=== PATIENT | male | born 1970 | race Caucasian/White ===

== ENCOUNTER → 2016-08-10 | Outpatient (CLI) | payer BC ==
--- NOTE | 2016-08-10 16:00 | US ---
EXAMINATION TYPE: US pelvic limited DATE OF EXAM: 08/10/2016 3:13 PM COMPARISON: CLINICAL HISTORY: R10.2 Pelvic and perineal pain. Lower abdominal pain= right, left and midline. No injury. No palpable. Pelvic scanned. Bladder appears distended and wnl. Prostate seen transabdominally = 3.1 x 3.8 x 2.5 cm with possible cystic lesion seen = 1.4 x 1.4 x 1.2 cm. Peristalsing bowel seen in bilateral adnex a- no masses or fluid collections identified. IMPRESSION: 1. Limited pelvic ultrasound. 2. Prostate with a hypoechoic area measuring 1.4 x 1.4 x 1.2 cm may be a cyst. Recommend transrectal sonography for closer evaluation.
== END | disposition home or self-care (01) ==
LOC: RADUSWWP 14:44
PROVIDERS: ATTEND Family Medicine
DX: R93.5 Abnormal findings on diagnostic imaging of other abdominal regions, including retroperitoneum (principal)
CPT/HCPCS: 76857

== ENCOUNTER 2017-06-04 08:32 | Emergency (ER) | payer OTHER, BC ==
[2017-06-04] MEDS ORDERED: MORPHINE SULFATE/PF 10MG/10ML VL IVP STA (09:03)
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
[2017-06-04] MEDS ORDERED: MORPHINE SULFATE 4 MG/ML SYRINGE IV STA (09:46)
[2017-06-04] MEDS ORDERED: MORPHINE SULFATE/PF 10MG/10ML VL IV STA (09:52)
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
[2017-06-04] MEDS ORDERED: LORazepam 2 MG/ML INJ IV STA (10:48)
[2017-06-04] MEDS ORDERED: KETOROLAC 30 MG/ML 1 ML VIAL IVP STA (10:49)
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
[2017-06-04 12:57] VITALS: BP 136/99; PULSE 84; RESP 17; TEMP 97.4
== END 2017-06-04 13:21 | disposition home or self-care (01) ==
LOC: EC 08:32
DX: M54.2 Cervicalgia (principal); M54.5 Low back pain; M25.552 Pain in left hip; M79.601 Pain in right arm; M79.602 Pain in left arm; K21.9 Gastro-esophageal reflux disease without esophagitis; F17.200 Nicotine dependence, unspecified, uncomplicated; Z98.1 Arthrodesis status; Z79.899 Other long term (current) drug therapy; V43.52XA Car driver injured in collision with other type car in traffic accident, initial encounter
CPT/HCPCS: 72072; 72100; 73502; 72125; 70450; 99285; 96374; 96375 ×2; 96376; J2060; J1885; J2270

== ENCOUNTER → 2017-12-28 | Outpatient (CLI) | payer OTHER, BC ==
--- NOTE | 2017-12-28 07:52 | MR ---
EXAMINATION TYPE: MR cervical spine wo/w con DATE OF EXAM: 12/28/2017 COMPARISON: CT cervical spine 06/04/2017 HISTORY: Neck pain TECHNIQUE: Multiplanar, multisequence images of the cervical spine were acquired utilizing 7.5 mL intravenous Ga davist gadolinium contrast. Diffusion weighted imaging was performed. C2-C3: No evidence for degenerative disc disease. No disc bulge/herniation or protrusion. No Canal stenosis. Foramina are patent bilaterally. C3-C4: Spondylosis is present, there is some associated loss of disc height and signal. Broad-based p osterior disc bulge causes only minimal anterior mass effect on the thecal sac. No significant forami nal encroachment. C4-C5: Intervertebral spacing block is present. No disc herniation or foraminal encroachment. C5-C6: Uncovertebral joint hypertrophy and facet arthropathy result in some left greater than right f oraminal encroachment. No disc herniation. Intervertebral spacing blocks present. C6-C7: There is a posterior broad-based disc bulge present causing mild anterior mass effect on the t hecal sac, lateral disc herniation is noted approaching on the neural foramina bilaterally. C7-T1: No evidence for degenerative disc disease. No disc bulge/herniation or protrusion. No Canal stenosis. Foramina are patent bilaterally. Cervical segments are intact. There is normal alignment. Cervical spinal cord is of normal signal. Craniovertebral junction relationships are within normal limits. Anterior cervical fusion and disce ctomy change at C4-C6, susceptibility artifact due to patient's hardware is noted. There is no eviden t spinal stenosis. No abnormal enhancement following contrast administration. Possible polyp noted in the maxillary sinus on the left versus mucus retention cyst. IMPRESSION: Lateral disc herniations at C6-7, correlate for C7 radiculopathies. Additional findings above.
== END | disposition home or self-care (01) ==
LOC: RADMRIMAIN 06:29
PROVIDERS: ATTEND Orthopaedic Surgery Orthopaedic Surgery of the Spine
DX: M50.220 Other cervical disc displacement, mid-cervical region, unspecified level (principal); M47.812 Spondylosis without myelopathy or radiculopathy, cervical region; M46.92 Unspecified inflammatory spondylopathy, cervical region
CPT/HCPCS: 72156; A9581

== ENCOUNTER → 2018-02-04 | Outpatient (CLI) | payer BC, OTHER ==
[2018-02-04 13:03] LABS: Basophils % (A) 1 %; Eosinophils # (A) 0.2 k/uL (0-0.7); Eosinophils % (A) 3 %; HCT 45.3 % (39.0-53.0); HGB 15.4 gm/dL (13.0-17.5); Lymphocytes # (A) 2.1 k/uL (1.0-4.8); Lymphocytes % (A) 35 %; MCH 29.4 pg (25.0-35.0); MCHC 34.1 g/dL (31.0-37.0); MCV 86.2 fL (80.0-100.0); Mean Platelet Volume 7.8; Monocytes # (A) 0.3 k/uL (0-1.0); Monocytes % (A) 5 %; Neutrophils # (A) 3.3 k/uL (1.3-7.7); Neutrophils % (A) 55 %; Platelet Count 284 k/uL (150-450); RBC 5.25 m/uL (4.30-5.90); RDW 13.6 % (11.5-15.5); WBC 5.9 k/uL (3.8-10.6)
[2018-02-04 13:11] LABS: Potassium 4.8 mmol/L (3.5-5.1)
[2018-02-04 13:13] LABS: INR 1.1 (<1.2); Partial Thromboplastin Time 25.1 sec (22.0-30.0); Prothrombin Time 10.3 sec (9.0-12.0)
--- NOTE | 2018-02-05 15:50 | XR ---
EXAMINATION TYPE: XR chest 2V DATE OF EXAM: 02/04/2018 COMPARISON: Chest x-ray May 25, 2009 HISTORY: Presurgical study. TECHNIQUE: Frontal and lateral views of the chest are obtained. FINDINGS: There is no focal air space opacity, pleural effusion, or pneumothorax seen. The cardiac silhouette size is within normal limits. The osseous structures are intact. IMPRESSION: No acute cardiopulmonary process. No significant change from prior.
== END | disposition home or self-care (01) ==
LOC: LABPAT 12:15
PROVIDERS: ATTEND Orthopaedic Surgery Orthopaedic Surgery of the Spine
DX: Z01.818 Encounter for other preprocedural examination (principal); M50.123 Cervical disc disorder at C6-C7 level with radiculopathy; Z01.812 Encounter for preprocedural laboratory examination
CPT/HCPCS: 36415; 71046; 80048; 85025; 85610; 85730

== ENCOUNTER 2018-02-11 12:36 | Inpatient (IN) | payer BC, OTHER ==
[2018-01-31 11:15] VITALS: BMI 22.6
[~2018-02-11 12:36] MED LIST: BACITRACIN 50,000 UNIT, POLYMYXIN B 500,000 UNIT in SODIUM CHLORIDE 0.9% IRRIGATIO 1,00... IRRIGATION ONE; DEXAMETHASONE SOD PHOSPHATE 10 MG/ML 1 ML VIAL IV ONE; LIDOCAINE 1% 20 ML VIAL (10MG/ML) FOR IV START INTRADERMA PRN; ONDANSETRON 4 MG/2 ML VIAL IVP ONE; SCOPOLAMINE 1.5MG/72HR PATCH TRANSDERM ONE; ceFAZolin IN SWFI 2 GM/20 ML SYRINGE IVP ONE
[2018-02-11] MEDS: LACTATED RINGERS 1,000 ML IV SCH (13:26)
[2018-02-11] MEDS ORDERED: fentaNYL (PF) 50 MCG/ML 2 ML AMP IVP ONE (13:47)
[2018-02-11] MEDS ORDERED: ePHEDrine SULFATE/0.9% NACL/PF 50 MG/5 ML SYRINGE IV ONE (14:38)
[2018-02-11] MEDS ORDERED: fentaNYL (PF) 50 MCG/ML 2 ML AMP ONE (14:38)
[2018-02-11] MEDS ORDERED: PROPOFOL 10 MG/ML 20 ML VIAL IV ONE (14:38)
[2018-02-11] MEDS ORDERED: ROCURONIUM BROMIDE 10 MG/ML 10 ML VIAL IV ONE (14:38)
[2018-02-11] MEDS ORDERED: LIDOCAINE 1% INJ 10MG/ML (20 ML MDV) ONE (14:38)
[2018-02-11] MEDS ORDERED: GELATIN SPONGE,ABSORB (LARGE) 1 EACH SPONGE TOPICAL ONE (14:38)
[2018-02-11] MEDS ORDERED: LIDOCAINE 0.5%-EPI 1:200,000 50 ML VIAL SQ ONE (14:38)
[2018-02-11] MEDS ORDERED: MIDAZOLAM 2 MG/2 ML VIAL ONE (14:38)
[2018-02-11] MEDS ORDERED: DEXAMETHASONE SOD PHOS (MDV) 100 MG/10 ML VIAL ONE (14:38)
[2018-02-11] MEDS ORDERED: THROMBIN (BOVINE) 5,000 UNIT VIAL TOPICAL ONE (14:38)
[2018-02-11] MEDS ORDERED: NEOSTIGMINE 1 MG/ML 10 ML VIAL ONE (14:38)
[2018-02-11] MEDS ORDERED: GLYCOPYRROLATE 0.2 MG/ML 2 ML VIAL ONE (14:38)
[2018-02-11] MEDS ORDERED: LACTATED RINGERS 1,000 ML IV ONE (15:12)
[2018-02-11] MEDS ORDERED: BENZOCAINE/MENTHOL LOZENG 1 EACH LOZENGE MUCOUS MEM PRN (16:33)
[2018-02-11] MEDS ORDERED: HYDROmorphone 1 MG/ML 1 ML SYRINGE IVP PRN (16:33)
[2018-02-11] MEDS ORDERED: ACETAMINOPHEN TAB 325 MG TAB PO PRN (16:33)
[2018-02-11] MEDS ORDERED: MAGNESIUM HYDROXIDE 2,400 MG/10 ML CUP PO PRN (16:33)
[2018-02-11] MEDS ORDERED: ONDANSETRON 4 MG/2 ML VIAL IVP PRN (16:33)
[2018-02-11] MEDS ORDERED: LORATADINE-PSEUDOEPH 5-120 MG 1 EACH TAB.ER.12H PO PRN (16:35)
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
[2018-02-11] MEDS: HYDROmorphone 1 MG/ML 1 ML SYRINGE IVP PRN ×5 (17:08→21:38)
[2018-02-11] MEDS: SODIUM CHLORIDE 0.9% 1,000 ML IV SCH (18:24)
[2018-02-11] MEDS: HYDROcodone/APAP 5-325MG 1 EACH TAB PO PRN (21:36)
[2018-02-11] MEDS: ceFAZolin IN SWFI 2 GM/20 ML SYRINGE IVP SCH (23:22)
[2018-02-12] MEDS: HYDROcodone/APAP 5-325MG 1 EACH TAB PO PRN ×4 (03:12→21:17)
[2018-02-12] MEDS: HYDROmorphone 1 MG/ML 1 ML SYRINGE IVP PRN ×2 (03:13→12:58)
[2018-02-12] MEDS: LACTATED RINGERS 1,000 ML IV SCH (07:17)
[2018-02-12] MEDS: SODIUM CHLORIDE 0.9% 1,000 ML IV SCH (07:32)
[2018-02-12] MEDS: ceFAZolin IN SWFI 2 GM/20 ML SYRINGE IVP SCH (07:33)
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
--- NOTE | 2018-02-12 09:02 | FL ---
Fluoroscopy History: Cervical fusion Cervical fusion. 13 secs. fluoro. 2 images scanned.
[2018-02-12] MEDS: CYCLOBENZAPRINE 10 MG TAB PO PRN ×2 (09:36→17:35)
[2018-02-12] MEDS: hydrOXYzine PAMOATE 25 MG CAP PO PRN ×2 (11:07→21:20)
[2018-02-12] MEDS ORDERED: KETOROLAC 30 MG/ML 1 ML VIAL IVP STA (11:27)
[2018-02-12 20:54] VITALS: TEMP 98.4
[2018-02-13] MEDS: HYDROcodone/APAP 5-325MG 1 EACH TAB PO PRN (04:26)
[2018-02-13] MEDS: CYCLOBENZAPRINE 10 MG TAB PO PRN (04:26)
[2018-02-13] MEDS: hydrOXYzine PAMOATE 25 MG CAP PO PRN (04:26)
[2018-02-13 04:53] VITALS: BP 130/85; PULSE 71; RESP 18
[2018-02-13] MEDS: LACTATED RINGERS 1,000 ML IV SCH (07:12)
[2018-02-13] MEDS: SODIUM CHLORIDE 0.9% 1,000 ML IV SCH (07:58)
--- NOTE | 2018-02-13 10:42 | P.PN ---
Progress Note - Text Progress Note Date: 02/13/18 This is a 47-year-old male who we're following regarding his postoperative care. He is status post cervical fusion. His discharge was held yesterday for pain management issues. He is ready for discharge today. He has no new complaints or concerns today. Vital signs are stable. The patient is discharged to home. Please see previous discharge summary and med rec.
== END 2018-02-13 11:05 | disposition home or self-care (01) | DRG 473 ==
LOC: 2ORMAIN 12:36 → 3NMEDONC 17:10
PROVIDERS: ADMIT Orthopaedic Surgery Orthopaedic Surgery of the Spine; ATTEND Orthopaedic Surgery Orthopaedic Surgery of the Spine
PROC: 0RT30ZZ Resection of Cervical Vertebral Disc, Open Approach (ICD-10-PCS; 2018-02-11)
PROC: 0RG10A0 Fusion of Cervical Vertebral Joint with Interbody Fusion Device, Anterior Approach, Anterior Column, Open Approach (ICD-10-PCS; principal; 2018-02-11 14:45)
DX: M50.123 Cervical disc disorder at C6-C7 level with radiculopathy (principal); K21.9 Gastro-esophageal reflux disease without esophagitis; G89.29 Other chronic pain; M54.9 Dorsalgia, unspecified; F17.210 Nicotine dependence, cigarettes, uncomplicated; K57.90 Diverticulosis of intestine, part unspecified, without perforation or abscess without bleeding; G47.00 Insomnia, unspecified; Z98.1 Arthrodesis status; Z79.899 Other long term (current) drug therapy; Z82.49 Family history of ischemic heart disease and other diseases of the circulatory system; Z82.61 Family history of arthritis; Z84.89 Family history of other specified conditions
CPT/HCPCS: 72040; 86850; 86900; 86901

== ENCOUNTER → 2024-09-16 | Outpatient (CLI) | payer BC ==
--- NOTE | 2024-09-16 09:43 | US ---
EXAMINATION TYPE: US abdomen limited DATE OF EXAM: 09/16/2024 COMPARISON: US 2014 CLINICAL INDICATION: Male, 53 years old with history of R74.8 ELEVATED LIVER ENZYMES; TECHNIQUE: Grayscale and color Doppler imaging of the right upper quadrant was performed. FINDINGS: EXAM MEASUREMENTS: Liver Length: 17.1 cm Gallbladder Wall: 0.2 cm CBD: 0.3 cm Right Kidney: 10.2 x 4.3 x 4.7 cm Pancreas: visualized portions wnl, limited by overlying midline bowel gas Liver: limited visualization, scanned intercostally, attenuating, mildly course Gallbladder: wnl Evidence for sonographic Loving's sign: no CBD: visualized portions wnl, limited by overlying bowel gas Right Kidney: wnl IMPRESSION: Limited study [facility] Evita Willoughby, , 09/16/2024 9:41 AM
== END | disposition home or self-care (01) ==
LOC: RADUSWWP 07:47
PROVIDERS: ATTEND Family Medicine
DX: R74.8 Abnormal levels of other serum enzymes (principal)
CPT/HCPCS: 76705